=== PATIENT | female | born 2000 | race Caucasian/White ===

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

== ENCOUNTER 2023-08-15 10:15 | Emergency (ER) | payer OTHER ==
[2023-08-15 10:39] VITALS: BP 106/61; PULSE 81; RESP 17; TEMP 98.7; BMI 26.5
[2023-08-15 11:45] LABS: URINE APPEARANCE CLOUDY; URINE BILIRUBIN NEGATIVE (NEGATIVE); URINE COLOR RED; URINE GLUCOSE (UA) NEGATIVE (NEGATIVE)
[2023-08-15 11:46] LABS: PH,URINE 7.5 (5.0-8.0); URINE KETONE NEGATIVE (NEGATIVE); URINE LEUK ESTERASE 1+ (NEGATIVE); URINE NITRITE NEGATIVE (NEGATIVE); URINE PROTEIN 1+ (NEGATIVE)
== END 2023-08-15 12:51 | disposition home or self-care (01) ==
LOC: JERFT 10:15
DX: R30.0 Dysuria (principal); R31.9 Hematuria, unspecified; R35.0 Frequency of micturition; R10.30 Lower abdominal pain, unspecified
CPT/HCPCS: 36415; 81003; 81015; 84703; 87086; 87491; 87591; 96372; 99284-25

== ENCOUNTER 2024-08-14 12:54 | Emergency (ER) | payer OTHER ==
[2024-08-14 13:02] VITALS: BP 97/63; PULSE 77; RESP 18; TEMP 98.8; BMI 25.4
[2024-08-14] MEDS ORDERED: ACETAMINOPHEN 650 MG/20.3 ML ORAL SOLUTION (CUPS) ONE (14:18)
[2024-08-14] MEDS: ACETAMINOPHEN 650 MG/20.3 ML ORAL SOLUTION (CUPS) PO ONE (14:22)
[2024-08-14 14:56] LABS: EPI CELLS 5 /uL (0-25.1); HYALINE CASTS 0 /uL (0-3.1); URINE APPEARANCE CLEAR; URINE BACTERIA 208 /uL (0-1359); URINE BILIRUBIN NEGATIVE (NEGATIVE); URINE COLOR YELLOW; URINE GLUCOSE (UA) NEGATIVE (NEGATIVE); URINE KETONE NEGATIVE (NEGATIVE); URINE LEUK ESTERASE 2+ (NEGATIVE); URINE NITRITE NEGATIVE (NEGATIVE); URINE PROTEIN NEGATIVE (NEGATIVE); URINE RBC 8 /uL (0-23.9); URINE UROBILINOGEN 0.2 mg/dL (0.2-1.0); URINE WBC 186 /uL (0-25.8)
[2024-08-14 17:30] LABS: HCV DIAGNOSTIC IN-HOUSE W/RFLX NON-REACTIVE (NONREACTIVE)
[2024-08-14 17:32] LABS: HIV INTERPRETATION NEGATIVE (NEGATIVE)
== END 2024-08-14 16:12 | disposition home or self-care (01) ==
LOC: JER 12:54 → JERFT 12:54
DX: N39.0 Urinary tract infection, site not specified (principal); R30.0 Dysuria; R35.0 Frequency of micturition; R51.9 Headache, unspecified; R10.30 Lower abdominal pain, unspecified
CPT/HCPCS: 36415; 81003; 86803; 87086; 87389; 87491; 87591; 99283-25